=== PATIENT | female | born 2000 | race Caucasian/White ===

== ENCOUNTER 2019-05-18 15:39 | Emergency (ER) | payer OTHER ==
[~2019-05-18] VITALS: Ht 149.9 cm; Wt 51.7 kg
[2019-05-18 15:57] VITALS: Ht 149.9 cm; Wt 51.7 kg
[2019-05-18 17:29] VITALS: BP 110/69
== END 2019-05-18 17:29 | disposition home or self-care (01) ==
LOC: ED 15:39
DX: R51 Headache (principal); J02.9 Acute pharyngitis, unspecified; J45.909 Unspecified asthma, uncomplicated